=== PATIENT | female | born 1940 | race Caucasian/White ===

== ENCOUNTER 2020-07-11 11:11 | Inpatient (IN) | payer MEDICARE, OTHER ==
[~2020-07-11] VITALS: Ht 167.6 cm; Wt 55.8 kg
[2020-07-11] MEDS ORDERED: IV NS 0.9% 500 ML BAG IV ONE (11:30)
--- NOTE | 2020-07-11 11:52 | NUR ---
Patient awake alert non distress complain of Rt foot pain no slurr speech no numbness no facial drooping hooke in the monitor .lab ,ekg done
[2020-07-11 12:15] LABS: ALANINE AMINOTRANSFERASE 40 U/L (12-78); ALKALINE PHOSPHATASE 257 U/L (46-116); ASPARTATE AMINOTRANSFERASE 52 U/L (15-37); BILIRUBIN,DIRECT 0.2 mg/dL (0.0-0.2); BILIRUBIN,TOTAL 0.9 mg/dL (0.2-1.0); CALCIUM, SERUM 9.6 mg/dL (8.5-10.1); CARBON DIOXIDE 26 mmol/L (21-32); CHLORIDE 95 mmol/L (98-107); CREATININE 0.8 mg/dL (0.6-1.3); GLUCOSE 147 mg/dL (74-106); POTASSIUM 3.3 mmol/L (3.5-5.1); SODIUM SERUM 130 mmol/L (136-145); TOTAL PROTEIN, SERUM 7.4 g/dL (6.4-8.2); UREA NITROGEN, BLOOD 11 mg/dL (7-18)
[2020-07-11 12:52] LABS: BASOPHILS # (AUTO) 0.2 /CMM (0.0-0.2); BASOPHILS % (AUTO) 1.1 % (0.0-2.0); EOSINOPHILS % (AUTO) 0.8 % (0.0-6.0); HEMATOCRIT 36 % (33-45); HEMOGLOBIN 11.9 g/dL (11.5-14.8); LYMPHOCYTES % (AUTO) 5.6 % (20.0-44.0); MEAN CORPUSCULAR HGB CONC 33 g/dl (31.0-36.0); MEAN CORPUSCULAR VOLUME 100 fL (82-100); MONOCYTES # (AUTO) 1.3 /CMM (0.1-1.30); MONOCYTES % (AUTO) 7.7 % (2.0-12.0); NEUTROPHILS # (AUTO) 14.8 /CMM (1.8-8.9); NEUTROPHILS % (AUTO) 84.8 % (43.0-81.0); RED BLOOD CELL COUNT(AUTO) 3.56 MIL/uL (4.0-5.2); WHITE BLOOD COUNT (AUTO) 17.4 K/uL (4.3-11.0)
[2020-07-11 12:53] LABS: PLATELET COUNT (AUTO) 1418 /CMM (150-450)
[2020-07-11 13:06] LABS: ALBUMIN 1.8 g/dL (3.4-5.0)
[2020-07-11 13:31] LABS: EOSINOPHILS % (MANUAL) 1 % (0-4); LYMPHOCYTES % (MANUAL) 7 % (16-48); MONOCYTES % (MANUAL) 10 % (0-11.0); NEUTROPHILS % (MANUAL) 82 (42-76)
[2020-07-11] MEDS ORDERED: PIPERACILLIN /TAZOBACTAM 3.375 G in IV D5W 50 ML IV ONE (14:00)
[2020-07-11] MEDS ORDERED: VANCOMYCIN 1 GM in IV D5W 250 ML IV ONE (14:00)
--- NOTE | 2020-07-11 14:08 | NUR ---
MOVE SHEET TURNED IN AND CALLED FOR BED.
--- NOTE | 2020-07-11 14:11 | NUR ---
Covid swab obatined and send to lab
[2020-07-11] MEDS ORDERED: DILT-3 PO (14:22)
[2020-07-11] MEDS ORDERED: APIX2.5T PO (14:22)
[2020-07-11] MEDS ORDERED: CLON0.5T PO (14:22)
[2020-07-11] MEDS ORDERED: HYDR-4384 PO (14:22)
[2020-07-11] MEDS ORDERED: ACETAMINOPHEN 325 MG TABLET PO PRN (15:00)
[2020-07-11] MEDS ORDERED: MAGNESIUM HYDROXIDE 30 ML UDC PO PRN (15:00)
[2020-07-11] MEDS ORDERED: ZOLPIDEM TARTRATE 5 MG TABLET PO PRN (15:00)
[2020-07-11] MEDS ORDERED: Z GUARD REMEDY 2 OZ OINT TP PRN (15:00)
[2020-07-11] MEDS ORDERED: ONDANSETRON HCL/PF 4 MG/2 ML VIAL IVP PRN (15:00)
[2020-07-11] MEDS ORDERED: ENOXAPARIN SODIUM 40 MG/0.4 ML DISP.SYRIN SQ SCH (15:00)
[2020-07-11] MEDS ORDERED: MAG HYDROX/AL HYDROX/SIMETH 30 ML UDC PO PRN (15:00)
--- NOTE | 2020-07-11 15:07 | NUR ---
Patient awake alert non distress demands @ times noted Rt foot discomfort support and elevated with pillow /blanket her caregiver@ bedside patient has sawyer non discomfort per patient patient refuse to reposition to check her skin explain importance x 2
--- NOTE | 2020-07-11 15:14 | NUR ---
COVID NEGATIVE PER LAB
--- NOTE | 2020-07-11 15:49 | NUR ---
CALLED HOUSE SUP COVID (-)NEG
--- NOTE | 2020-07-11 16:03 | NUR ---
Patient is awke alert oriented. Noted no slurred speech. Deny numbness. Complaining of right foot discomfort. Placed pillow underneath and elevate. Patient is for continues monitoring.
--- NOTE | 2020-07-11 16:04 | NUR ---
GOT BED 308-1 HELIO OWENS
--- NOTE | 2020-07-11 16:18 | NUR ---
Report given to Rita Andino
--- NOTE | 2020-07-11 16:39 | NUR ---
Patient awake alert aware plan of care ,admission her family aware room 308 -1 her critical care physician aware no visitor allowed in the area ,[facility] family services manager in the waiting .
--- NOTE | 2020-07-11 17:00 | NUR ---
MS/tank cleaning supervisor New admission from emergency room with cellulitis of right foot. Fully admitted, pictures still need to be taken. Awaiting orders from Dr Newell.
[2020-07-11] MEDS: clonazePAM 0.5 MG TABLET PO SCH (17:25)
[2020-07-11] MEDS: HYDROCODONE/APAP 5/325MG TABLET PO PRN ×2 (17:25→23:40)
[2020-07-11] MEDS: APIXABAN 2.5 MG TABLET PO SCH (17:28)
--- NOTE | 2020-07-11 18:00 | NUR ---
MS/youtuber update Call received from patient's son Fran. Requesting that Dr Newell call him with update and to answer further questions. Fran
--- NOTE | 2020-07-11 18:26 | NUR ---
MS/RN End note Patient remains in stable condition. Milan Peters updated as to plan of care. Will endorse to lieutenant shift supervisor.
[2020-07-11 20:00] VITALS: BP 135/64
--- NOTE | 2020-07-11 20:00 | NUR ---
MS RN OPENING NOTES RECEIVED PATIENT IN BED, AWAKE, CONSCIOUS, COOPERATIVE, A/0 X4, BREATHING AT ROOM AIR, UNLABORED BREATHING, NO SIGNS OF RESPIRATORY DISTRESS, RAC #22G NS @75ML/HR, MCNEIL CATH ATTACHED WITH YELLOWISH COLORED URINE, SIDE RAILS UP.
[2020-07-11] MEDS: PIPERACILLIN /TAZOBACTAM 3.375 G in IV D5W 50 ML IV SCH (21:03)
[2020-07-12] MEDS: PIPERACILLIN /TAZOBACTAM 3.375 G in IV D5W 50 ML IV SCH ×4 (02:37→20:35)
[2020-07-12] MEDS: VANCOMYCIN 0.75 GM in IV D5W 250 ML IV SCH ×2 (03:19→15:10)
[2020-07-12] MEDS: IV NS 0.9% 1,000 ML IV PRN ×2 (06:25→20:35)
--- NOTE | 2020-07-12 06:48 | NUR ---
MS RN CLOSING NOTES ENDORSED PATIENT IN BED, AWAKE, CONSCIOUS, COOPERATIVE, A/0 X4, BREATHING AT ROOM AIR, UNLABORED BREATHING, NO SIGNS OF RESPIRATORY DISTRESS, RAC #22G NS @75ML/HR, MCNEIL CATH ATTACHED WITH YELLOWISH COLORED URINE, DUE MEDS GIVEN, PAIN MED GIVEN, SIDE RAILS UP FOR SAFETY.
[2020-07-12 06:53] LABS: CALCIUM, SERUM 9.4 mg/dL (8.5-10.1); CREATININE 0.7 mg/dL (0.6-1.3); MAGNESIUM 2.1 mg/dL (1.8-2.4); PHOSPHORUS 2.9 mg/dL (2.5-4.9); POTASSIUM 3.3 mmol/L (3.5-5.1)
[2020-07-12 06:54] LABS: HEMOGLOBIN 11.4 g/dL (11.5-14.8)
[2020-07-12 07:36] LABS: BASOPHILS # (AUTO) 0.3 /CMM (0.0-0.2); BASOPHILS % (AUTO) 2.1 % (0.0-2.0); EOSINOPHILS % (AUTO) 1.7 % (0.0-6.0); HEMATOCRIT 34 % (33-45); LYMPHOCYTES # (AUTO) 1.6 /CMM (0.8-4.8); LYMPHOCYTES % (AUTO) 12.2 % (20.0-44.0); MEAN CORPUSCULAR HGB CONC 34 g/dl (31.0-36.0); MEAN CORPUSCULAR VOLUME 99 fL (82-100); MONOCYTES # (AUTO) 1.2 /CMM (0.1-1.30); MONOCYTES % (AUTO) 8.9 % (2.0-12.0); NEUTROPHILS # (AUTO) 10.1 /CMM (1.8-8.9); NEUTROPHILS % (AUTO) 75.1 % (43.0-81.0); PLATELET COUNT (AUTO) 525 /CMM (150-450); RED BLOOD CELL COUNT(AUTO) 3.45 MIL/uL (4.0-5.2); WHITE BLOOD COUNT (AUTO) 13.4 K/uL (4.3-11.0)
[2020-07-12 07:41] LABS: THYROID STIMULATING HORMONE 2.025 uIU/mL (0.358-3.74)
--- NOTE | 2020-07-12 08:00 | NUR ---
MS RN NOTES PATIENT IN BED RESTING NO SOB OR ACUTE DISTRESS NOTED. PATIENT ALERT, ORIENTED X3. PERIPHERAL IV INTACT PATENT. SAFETY MEASURES IN PLACE. WILL CONTINUE TO MONITOR.
[2020-07-12 08:07] LABS: EOSINOPHILS % (MANUAL) 4 % (0-4); LYMPHOCYTES % (MANUAL) 18 % (16-48); MONOCYTES % (MANUAL) 9 % (0-11.0); NEUTROPHILS % (MANUAL) 69 (42-76)
[2020-07-12 08:24] VITALS: BP 124/74
--- NOTE | 2020-07-12 09:00 | NUR ---
MS RN NOTES MCNEIL CATH DISLODGED. MD MADE AWARE, ORDERS TO KEEP PATIENT WITHOUT MCNEIL AND MONITOR FOR RETENTION.
[2020-07-12] MEDS: DILTIAZEM HCL CD 240 MG PO SCH (09:13)
[2020-07-12] MEDS: clonazePAM 0.5 MG TABLET PO SCH ×2 (09:13→17:28)
[2020-07-12] MEDS: APIXABAN 2.5 MG TABLET PO SCH ×2 (09:34→17:28)
[2020-07-12] MEDS ORDERED: POTASSIUM CHLORIDE 20 MEQ TAB.PRT.SR PO ONE (11:00)
[2020-07-12 16:00] VITALS: BP 115/55
[2020-07-12] MEDS: HYDROCODONE/APAP 5/325MG TABLET PO PRN (17:58)
--- NOTE | 2020-07-12 18:56 | NUR ---
MS RN NOTES PATIENT IN BED RESTING NO SOB OR ACUTE DISTRESS NOTED. NO ACUTE CHANGES NOTED DURING AM SHIFT. ALL NEEDS MET. ALL DUE MEDICATIONS ADMINISTERED. CAREGIVER AT BEDSIDE. WILL ENDORSE CARE TO PM SHIFT.
--- NOTE | 2020-07-12 19:32 | NUR ---
MS RN RECEIVE PT IN BED A/O X 4, STABLE AND NOT IN RESPIRATORY DISTRESS, SAFETY MEASURES AT ALL TIMES. WILL CONT TO MONITOR
[2020-07-12 20:00] VITALS: BP 120/66
[2020-07-13] MEDS: PIPERACILLIN /TAZOBACTAM 3.375 G in IV D5W 50 ML IV SCH ×3 (02:15→14:24)
[2020-07-13] MEDS: VANCOMYCIN 0.75 GM in IV D5W 250 ML IV SCH ×2 (03:14→15:13)
[2020-07-13] MEDS: HYDROCODONE/APAP 5/325MG TABLET PO PRN ×3 (03:51→20:20)
--- NOTE | 2020-07-13 06:11 | NUR ---
MS RN PT SLEPT WELL 9 1/2 HOURS, CAREGIVER AT BEDSIDE, MONITORED ACCORDINGLY, ALL NEEDS ATTENDED AND ANTICIPATED, KEPT CLEAN, DRY AND COMFORTABLE AT ALL TIMES. NURSING CARE RENDERED, NORCO GIVEN FOR PAIN WITH RELIEF. SAFETY MEASURES AT ALL TIMES. WILL ENDORSE TO NEXT SHIFT POC
[2020-07-13 07:08] LABS: CALCIUM, SERUM 8.7 mg/dL (8.5-10.1); CREATININE 0.7 mg/dL (0.6-1.3); POTASSIUM 3.3 mmol/L (3.5-5.1)
--- NOTE | 2020-07-13 07:45 | NUR ---
RN OPENING NOTE Patient is resting in bed, A/O x4, showing no signs of acute distress or SOB, stable on RA. Patient has no complaints of pain at this time. RAC #22g is clean and intact running NS @ 75mls/hour. Caregiver at the bedside. Bed is in lowest position, side rails x3 in upright position, call light is within reach, fall safety and aspiration precautions enforced. Will continue with plan of care.
[2020-07-13] MEDS: clonazePAM 0.5 MG TABLET PO SCH ×2 (08:39→16:13)
[2020-07-13] MEDS: APIXABAN 2.5 MG TABLET PO SCH ×2 (08:46→16:14)
[2020-07-13] MEDS: DILTIAZEM HCL CD 240 MG PO SCH (08:56)
--- NOTE | 2020-07-13 09:00 | NUR ---
RN NOTE Spoke to family to obtain any discharge record/documentation from [facility] and family said they are unable to locate any documentation. [place]'s MR office is closed. is aware.
[2020-07-13] MEDS: POTASSIUM CHLORIDE 20 MEQ POWDER PACKET PO ONE ×2 (11:30→12:27)
[2020-07-13] MEDS: IV NS 0.9% 1,000 ML IV PRN (12:50)
[2020-07-13] MEDS: ENSURE ENLIVE CHOC 237 ML CAN PO SCH ×2 (13:12→16:14)
--- NOTE | 2020-07-13 14:32 | NUR ---
RN NOTE Patient refused to take potassium powder and prefers to take tablet. Informed pharmacy and changed to tablet.
[2020-07-13] MEDS ORDERED: POTASSIUM CHLORIDE 20 MEQ TAB.PRT.SR PO ONE (15:00)
[2020-07-13 15:56] VITALS: BP 126/51
[2020-07-13 16:00] VITALS: BP 126/51
--- NOTE | 2020-07-13 18:08 | NUR ---
RN CLOSING NOTE Patient is resting in bed, A/O x4, showing no signs of acute distress or SOB, stable on RA. Patient has no complaints of pain at this time. RAC #22g is clean and intact running NS @ 75mls/hour. Caregiver at the bedside. All patient needs met, all due medications given, patient kept clean and dry throughout shift. Bed is in lowest position, side rails x3 in upright position, call light is within reach, fall safety and aspiration precautions enforced. Will endorse to restaurant shift supervisor.
--- NOTE | 2020-07-13 19:30 | NUR ---
MS RN RECEIVE PT IN BED A/O X 3, CAREGIVER AT BEDSIDE, STABLE, SAFETY MEASURES AT ALL TIMES. WILL CONT TO MONITOR
[2020-07-13 20:00] VITALS: BP 134/62
[2020-07-14] MEDS: HYDROCODONE/APAP 5/325MG TABLET PO PRN ×4 (02:25→20:41)
[2020-07-14] MEDS: VANCOMYCIN 0.75 GM in IV D5W 250 ML IV SCH ×2 (03:07→14:49)
[2020-07-14] MEDS: IV NS 0.9% 1,000 ML IV PRN (03:07)
--- NOTE | 2020-07-14 06:14 | NUR ---
MS RN ASLEEP AND EASILY AWAKEN, CAREGIVER AT BEDSIDE, AM CARE RENDERED, MONITORED FOR PAIN NOT IN DISTRESS, PAIN MEDICATION GIVEN PRN WITH RELIEF. NEEDS ATTENDED AND ANTICIPATED, KEPT CLEAN, DRY AND COMFORTABLE AT ALL TIMES. NURSING CARE RENDERED, ASSISTED REPOSITION, SAFETY MEASURES AT ALL TIMES. WILL ENDORSE TO NEXT SHIFT POC
[2020-07-14 06:52] LABS: BASOPHILS # (AUTO) 0.2 /CMM (0.0-0.2); BASOPHILS % (AUTO) 2.4 % (0.0-2.0); EOSINOPHILS % (AUTO) 1.5 % (0.0-6.0); HEMATOCRIT 23 % (33-45); HEMOGLOBIN 10.7 g/dL (11.5-14.8); LYMPHOCYTES # (AUTO) 1.2 /CMM (0.8-4.8); LYMPHOCYTES % (AUTO) 16.3 % (20.0-44.0); MEAN CORPUSCULAR HGB CONC 46 g/dl (31.0-36.0); MEAN CORPUSCULAR VOLUME 121 fL (82-100); MONOCYTES # (AUTO) 0.9 /CMM (0.1-1.30); MONOCYTES % (AUTO) 12.9 % (2.0-12.0); NEUTROPHILS # (AUTO) 4.8 /CMM (1.8-8.9); NEUTROPHILS % (AUTO) 66.9 % (43.0-81.0); WHITE BLOOD COUNT (AUTO) 7.1 K/uL (4.3-11.0)
[2020-07-14 06:59] LABS: APPEARANCE,URINE CLEAR (CLEAR); BILIRUBIN,URINE NEGATIVE (NEGATIVE); BLOOD, URINE TRACE-INTA Ery/uL (NEGATIVE); COLOR,URINE YELLOW (YELLOW); KETONES,URINE NEGATIVE (NEGATIVE); LEUKOCYTE ESTERASE ,URINE NEGATIVE (NEGATIVE); NITRITE, URINE NEGATIVE (NEGATIVE); PROTEIN,URINE NEGATIVE (NEGATIVE); UGLUCOSE NEGATIVE (NEGATIVE); UROBILINOGEN,URINE 0.2 EU/dL (0.2)
[2020-07-14 07:08] LABS: CALCIUM, SERUM 9.3 mg/dL (8.5-10.1); CREATININE 0.6 mg/dL (0.6-1.3); MAGNESIUM 2.1 mg/dL (1.8-2.4); PHOSPHORUS 3.3 mg/dL (2.5-4.9); POTASSIUM 3.7 mmol/L (3.5-5.1)
[2020-07-14 07:17] LABS: RED BLOOD CELL COUNT(AUTO) 1.93 MIL/uL (4.0-5.2)
[2020-07-14 07:18] LABS: PLATELET COUNT (AUTO) 1115 /CMM (150-450)
[2020-07-14 07:30] LABS: BACTERIA,URINE None seen /HPF (None Seen); SQUAMOUS EPITHELIAL CELL,UR Moderate /HPF (None Seen); WBC,URINE 0-2 /HPF (0-3)
[2020-07-14 07:31] LABS: MUCUS,URINE Few /LPF (None Seen)
[2020-07-14 08:00] VITALS: BP 129/61
[2020-07-14 08:32] LABS: BAND % (MANUAL) 2 % (0.0-5.0); LYMPHOCYTES % (MANUAL) 18 % (16-48); MONOCYTES % (MANUAL) 11 % (0-11.0); NEUTROPHILS % (MANUAL) 69 (42-76)
[2020-07-14] MEDS: APIXABAN 2.5 MG TABLET PO SCH ×2 (08:38→16:16)
[2020-07-14] MEDS: clonazePAM 0.5 MG TABLET PO SCH ×2 (08:38→16:16)
[2020-07-14] MEDS: ENSURE ENLIVE CHOC 237 ML CAN PO SCH ×2 (08:38→16:16)
[2020-07-14] MEDS: DILTIAZEM HCL CD 240 MG PO SCH (08:39)
--- NOTE | 2020-07-14 15:02 | NUR ---
RN NOTE Per patient statement, food was brought in by family and picked up in the lobby by the caregiver along with vitamins that patient already took. Charge nurse RN made aware.
[2020-07-14 16:00] VITALS: BP 116/54
--- NOTE | 2020-07-14 18:53 | NUR ---
RN CLOSING NOTE Patient is resting in bed, A/O x4, showing no signs of acute distress or SOB, stable on RA. Patient has no complaints of pain at this time. RAC #22g is clean and intact s/l. Caregiver at the bedside. All patient needs met, all due medications given, patient kept clean and dry throughout shift. Bed is in lowest position, side rails x3 in upright position, call light is within reach, fall safety and aspiration precautions enforced. Will endorse to shift supervisor film processing.
--- NOTE | 2020-07-14 19:40 | NUR ---
MS RN NOTES RECEIVED PATIENT ASLEEP AND EASILY AWAKEN, CAREGIVER AT BEDSIDE, KEPT CLEAN, DRY AND COMFORTABLE AT ALL TIMES. CALL LIGHT WITHIN EASY REACH, BED IN LOW LOCKED POSITION. NURSING CARE RENDERED, ASSISTED REPOSITION, SAFETY MEASURES AT ALL TIMES. WILL CONTINUE TO MONITOR ACCORDINGLY.
[2020-07-14 20:32] VITALS: BP 148/72
[2020-07-15] MEDS: HYDROCODONE/APAP 5/325MG TABLET PO PRN ×3 (02:32→23:13)
[2020-07-15] MEDS: VANCOMYCIN 0.75 GM in IV D5W 250 ML IV SCH ×2 (02:34→15:40)
--- NOTE | 2020-07-15 06:13 | NUR ---
RN NOTES ALL NEEDS ATTENDED AND MET, CAREGIVER AT BEDSIDE, LAST NORCO GIVEN AT 02:32, REPOSITIONED FOR COMFORT. IV ACCESS INTACT AND PATENT. ALL NEEDS ANTICIPATED.CALL LIGHT WITHIN REACH. WILL ENDORSE TO AM NURSE FOR CONTINUITY OF CARE.
[2020-07-15 06:49] LABS: CREATININE 0.7 mg/dL (0.6-1.3); MAGNESIUM 2.1 mg/dL (1.8-2.4); PHOSPHORUS 3.5 mg/dL (2.5-4.9); POTASSIUM 3.8 mmol/L (3.5-5.1)
[2020-07-15 07:23] LABS: BASOPHILS # (AUTO) 0.1 /CMM (0.0-0.2); EOSINOPHILS % (AUTO) 1.1 % (0.0-6.0); HEMATOCRIT 29 % (33-45); HEMOGLOBIN 9.9 g/dL (11.5-14.8); LYMPHOCYTES # (AUTO) 1.3 /CMM (0.8-4.8); LYMPHOCYTES % (AUTO) 13.8 % (20.0-44.0); MEAN CORPUSCULAR HGB CONC 34 g/dl (31.0-36.0); MEAN CORPUSCULAR VOLUME 96 fL (82-100); MONOCYTES # (AUTO) 1.1 /CMM (0.1-1.30); MONOCYTES % (AUTO) 11.5 % (2.0-12.0); NEUTROPHILS # (AUTO) 7.1 /CMM (1.8-8.9); NEUTROPHILS % (AUTO) 72.6 % (43.0-81.0); WHITE BLOOD COUNT (AUTO) 9.7 K/uL (4.3-11.0)
[2020-07-15 07:39] LABS: PLATELET COUNT (AUTO) 953 /CMM (150-450)
[2020-07-15 08:00] VITALS: BP 140/83
[2020-07-15] MEDS: ENSURE ENLIVE CHOC 237 ML CAN PO SCH (08:00)
--- NOTE | 2020-07-15 08:00 | NUR ---
MS RN NOTES PATIENT IN BED RESTING. ALERT, ORIENTED X3 CAREGIVER AT BEDSIDE. NO SOB OR ACUTE DISTRESS NOTED. MIDLINE INTACT PATENT. BED IN LOW LOCKED POSITION. SAFETY MEASURES IN PLACE WILL CONTINUE TO MONITOR.
[2020-07-15] MEDS: clonazePAM 0.5 MG TABLET PO SCH ×2 (09:00→16:55)
[2020-07-15] MEDS: DILTIAZEM HCL CD 240 MG PO SCH (09:08)
[2020-07-15] MEDS: APIXABAN 2.5 MG TABLET PO SCH ×2 (09:09→16:49)
--- NOTE | 2020-07-15 14:29 | NUR ---
MS RN NOTES SPOKE TO PATIENTS KIDS INFORMED OF DISCHARGE PLAN. PATIENTS FAMILY REQUESTS TO SPEAK TO DR. HERNANDEZ FOR DISCHARGE RECOMMENDATION. FAMILY REQUESTING DISCHARGE TO REHAB FACILITY. DR. HERNANDEZ PROVIDED WITH PATIENTS DAUGHTERS PHONE NUMBER. INFORMED CASE MANAGEMENT OF PATIENTS DISCHARGE PLAN.
[2020-07-15 16:00] VITALS: BP 117/67
[2020-07-15] MEDS: ENSURE ENLIVE 237 ML LIQUID (VANILLA) PO SCH (16:56)
--- NOTE | 2020-07-15 17:00 | NUR ---
MS RN NOTES PATIENT DISCHARGED TO [facility]. REHAB. DISCHARGE TEACHING PROVIDED TO PATIENT AND FAMILY. REPORT GIVEN TO RN AT [facility] AT [facility]. PERIPHERAL IV KEPT DUE TO PATIENT TO CONTINUE IV ATB AT [facility]. ALL BELONGINGS ACCOUNTED FOR BY PATIENT AND CAREGIVER. PATIENTS DAUGHTER MADE AWARE OF PATIENTS DISCHARGE. DISCHARGE PROTOCOL FOLLOWED. DR. HERNANDEZ AWARE OF ALL ABNORMAL LABS AND TESTS. PATIENTS DISCHARGED VIA AMBULANCE WITH EMT.
--- NOTE | 2020-07-15 22:45 | NUR ---
MS RN NOTE: RECEIVE PATIENT BACK FROM FACILITY, NO ACUTE DISTRESS NOTED. BREATHING EVEN AND UNLABORED, NO SOB NOTED. IV TO RIGHT UPPER ARM IN PLACE. CAREGIVER AT BEDSIDE. BED LOCKED AND IN LOWEST POSITION, CALL LIGHT IN REACH. WILL CONTINUE TO MONITOR.
--- NOTE | 2020-07-15 23:15 | NUR ---
MS RN NOTE: PATIENT COMPLAINS OF PAIN TO RIGHT FOOT 05/17, NORCO 5/325MG 1 TAB ORAL GIVEN PER MD ORDER. WILL CONTINUE TO MONITOR.
[2020-07-15 23:30] VITALS: BP 115/69
[2020-07-16] MEDS ORDERED: VANCOMYCIN 1 GM VIAL ONE (02:48)
[2020-07-16] MEDS: VANCOMYCIN 0.75 GM in IV D5W 250 ML IV SCH ×2 (03:17→17:42)
--- NOTE | 2020-07-16 06:10 | NUR ---
MS RN NOTE: PATIENT RESTING IN BED, NO ACUTE DISTRESS NOTED. BREATHING EVEN AND UNLABORED, NO SOB NOTED. IV TO RIGHT UPPER ARM IN PLACE. CAREGIVER AT BEDSIDE. BED LOCKED AND IN LOWEST POSITION, CALL LIGHT IN REACH. WILL ENDORSE TO DAY NURSE TO CONTINUE WITH PLAN OF CARE.
[2020-07-16] MEDS: HYDROCODONE/APAP 5/325MG TABLET PO PRN ×2 (07:27→18:47)
--- NOTE | 2020-07-16 07:55 | NUR ---
MS/RN OPENING NOTES: RECEIVED PATIENT ON BED, AWAKE ALERT AND ORIENTED X4. NO ACUTE RESPIRATORY DISTRESS NOTED. BREATHING EVEN AND UNLABORED, NO SOB NOTED. IV TO RIGHT UPPER ARM IN PLACE. CAREGIVER AT BEDSIDE. BED LOCKED AND IN LOWEST POSITION, CALL LIGHT IN REACH. WILL CONTINUE TO MONITOR.
[2020-07-16 08:00] VITALS: BP 126/71
[2020-07-16] MEDS: clonazePAM 0.5 MG TABLET PO SCH ×2 (09:06→17:00)
[2020-07-16] MEDS: DILTIAZEM HCL CD 240 MG PO SCH (09:06)
[2020-07-16] MEDS: APIXABAN 2.5 MG TABLET PO SCH ×2 (09:08→17:00)
[2020-07-16] MEDS: ENSURE ENLIVE 237 ML LIQUID (VANILLA) PO SCH ×2 (09:13→17:00)
[2020-07-16 18:31] VITALS: BP 103/57
--- NOTE | 2020-07-16 19:48 | NUR ---
MS/RN CLOSING NOTES: PATIENT ON BED, AWAKE ALERT AND ORIENTED X4. NO ACUTE RESPIRATORY DISTRESS NOTED. BREATHING EVEN AND UNLABORED, NO SOB NOTED. IV TO RIGHT UPPER ARM IN PLACE. CAREGIVER AT BEDSIDE. BED LOCKED AND IN LOWEST POSITION, CALL LIGHT IN REACH. PATIENT IS FOR DISCHARGED TODAY. WILL ENDORSED TO OPHTHALMOLOGY SURGICAL TECHNICIAN.
--- NOTE | 2020-07-16 20:47 | NUR ---
MS RN NOTE: Patient was picked up by [facility] from [facility] Unit #[id number]. Patient is stable with no acute respiratory distress or SOB. Removed armband and IV access prior to discharge.
--- NOTE | 2020-07-16 20:49 | NUR ---
MS RN NOTE: Continuation of discharge note. Patient discharged and left the unit at 2029.
== END 2020-07-16 20:30 | disposition home health service (06) | DRG 602 ==
LOC: ER 11:13 → MED 16:18 → UNDODISIN 07-15 17:10 → MED 07-15 22:11
DX: L03.115 Cellulitis of right lower limb (principal); E43 Unspecified severe protein-calorie malnutrition; E87.1 Hypo-osmolality and hyponatremia; E46 Unspecified protein-calorie malnutrition; Z68.1 Body mass index [BMI] 19.9 or less, adult; E87.6 Hypokalemia; I48.91 Unspecified atrial fibrillation; Z79.01 Long term (current) use of anticoagulants; E88.09 Other disorders of plasma-protein metabolism, not elsewhere classified; D47.3 Essential (hemorrhagic) thrombocythemia; E86.1 Hypovolemia; D72.829 Elevated white blood cell count, unspecified
CPT/HCPCS: 36415; 71045-TC; 73630-TC; 80048-TC; 80061-TC; 80076-TC; 80202-TC; 81000-TC; 83605-TC; 83735-TC; 84100-TC; 84443-TC; 84484-TC; 85025-TC; 85652-TC; 85730-TC; 86140-TC; 87040-TC; 87081-TC; 87086-TC; 97530-TC; C9803-CS; G0378; J2543; J3370; J7030; J7060